=== PATIENT | male | born 1985 | race American Indian/Alaskan Native ===

== ENCOUNTER 2021-04-27 09:48 | Emergency (ER) | payer SELFPAY ==
[2021-04-27 10:40] VITALS: BP 122/80
--- NOTE | 2021-04-27 12:21 | Emergency Department Report ---
Upper Extremity - [facility] Chief Complaint: Extremity Injury, Upper Stated Complaint: FINGER Time Seen by Provider: 04/27/21 12:17 Upper Extremity: Right Middle Finger Occurred When: 2 Days Severity: mild Symptoms: Yes Pain with Movement (little), Yes Limited Range of Movement, Yes Swelling, Yes Laceration or Abrasion, No Deformity Other History: 35-year-old -[place] male presents to the emergency room states that he had a cut on his right middle finger 2 days ago he reports that it is healed but now he has swelling and mild pain. Patient denies any fever chills no difficulty making a fist. Took Tylenol which she states had helped. He states this happened at work. ED Review of Systems ROS: Stated complaint: FINGER Other details as noted in HPI ED Past Medical Hx - Past Medical History Hx Asthma: Yes - Surgical History Past Surgical History?: No - Medications Home Medications: Home Medications Medication Instructions Recorded Confirmed Last Taken Type Ibuprofen [Motrin 600 MG tab] 600 mg PO Q8H PRN #30 tablet 04/27/21 Unknown Rx Sulfamethoxazole/Trimethoprim 1 each PO BID 10 Days #20 tablet 04/27/21 Unknown Rx [Bactrim DS TAB] Upper Extremity Exam - Exam General: Vital signs noted. No distress. Alert and acting appropriately. ED Course Vital Signs 04/27/21 10:38 Temperature 98.1 F Pulse Rate 70 Respiratory 18 Rate Blood Pressure 122/80 [Left] O2 Sat by Pulse 100 Oximetry ED Medical Decision Making - Medical Decision Making 35-year-old -[place] male presents to the emergency room states that he had a cut on his right middle finger 2 days ago he reports that it is healed but now he has swelling and mild pain. Patient denies any fever chills no difficulty making a fist. Took Tylenol which she states had helped. He states this happened at work. Complete antibiotics as prescribed. Pain medication as needed. Follow-up with your primary care provider. Critical care attestation.: If time is entered above; I have spent that time in minutes in the direct care of this critically ill patient, excluding procedure time. ED Disposition Clinical Impression: Cellulitis of finger of right hand Disposition: [id number] TO HOME OR SELFCARE Is pt being admited?: No Does the pt Need Aspirin: No Condition: Stable Instructions: Cellulitis, Adult, [id number] Additional Instructions: Complete antibiotics as prescribed. Pain medication as needed. If symptoms gets worse return back to the emergency room or urgent care. Prescriptions: Sulfamethoxazole/Trimethoprim [Bactrim DS TAB] 1 each PO BID 10 Days #20 tablet Ibuprofen [Motrin 600 MG tab] 600 mg PO Q8H PRN #30 tablet PRN Reason: Pain Referrals: MONIQUE TRONCOSO MD [Staff Physician] - 3-5 Days Forms: Work/School Release Form(ED) Time of Disposition: 12:21
== END 2021-04-27 12:40 | disposition home or self-care (01) ==
LOC: ED 09:48
DX: L03.011 Cellulitis of right finger (principal); J45.909 Unspecified asthma, uncomplicated
CPT/HCPCS: 99281